=== PATIENT | female | born 1985 | race Caucasian/White ===

== ENCOUNTER 2016-11-08 14:06 | Emergency (ER) | payer MEDICAID, OTHER ==
[~2016-11-08] VITALS: Ht 157.5 cm; Wt 104.8 kg
[~2016-11-08 14:06] MED LIST: /DULO30CA OR; /ESOM40CA OR; /ONDA4TA OR; ABIL10TA OR; ABIL2TAB OR; ATARAX OR; CETI10TA OR; INDE80CA PO; MAG400TA PO; MAGN500T2 OR; MULTIVIT OR; MULTIVIT PO; PREV15CA OR; PROP120C OR; TOPI200T OR; TRAZ100T OR; TRAZ50TA OR; TYLENOL #3 OR; VIT D 2000; VIT D 2000 PO; VIT250TA PO; VITA500T OR
[2016-11-08] MEDS ORDERED: GABA-279 PO (14:33)
[2016-11-08] MEDS ORDERED: TIZA2CAP3 PO (14:33)
[2016-11-08] MEDS ORDERED: CETI10CH PO (14:33)
[2016-11-08] MEDS ORDERED: PROP120C PO (14:33)
[2016-11-08] MEDS ORDERED: NORC5TAB PO (14:33)
[2016-11-08] MEDS ORDERED: SING5CHW23 PO (14:33)
[2016-11-08] MEDS ORDERED: DULE100A IN (14:33)
[2016-11-08] MEDS ORDERED: FAMO40TA3 PO (14:33)
[2016-11-08 16:25] LABS: MEAN CORPUSCULAR HEMOGLOBIN 26.9 pg (27.0-33.0); MEAN CORPUSCULAR HGB CONC 33.1 g/dl (32.0-36.5); MEAN CORPUSCULAR VOLUME 81.3 fl (80.0-96.0); RED CELL DISTRIBUTION WIDTH 14.5 % (11.5-14.5); WHITE BLOOD COUNT 7.5 K/mm3 (4.0-10.0)
[2016-11-08 16:43] LABS: CONTROL LINE INT CTR LINE PRESENT; METHADONE URINE NEGATIVE (NEGATIVE); TRICYCLIC ANTIDEPRESS URINE NEGATIVE (NEGATIVE)
[2016-11-08 16:46] LABS: CONTROL LINE HCG INT CTR LINE PRESENT
[2016-11-08 16:53] LABS: ALBUMIN 4.5 GM/DL (3.2-5.2); ALBUMIN/GLOBULIN RATIO 1.22 (1.00-1.93); ALKALINE PHOSPHATASE 107 U/L (45-117); ALT/SGPT 42 U/L (12-78); ANION GAP 8 MEQ/L (8-16); AST/SGOT 22 U/L (15-37); BILIRUBIN,DIRECT < 0.1 MG/DL (0.0-0.2); BILIRUBIN,TOTAL 0.3 MG/DL (0.2-1.0); BLOOD UREA NITROGEN 8 MG/DL (7-18); CALCIUM LEVEL 9.8 MG/DL (8.5-10.1); CARBON DIOXIDE LEVEL 28 MEQ/L (21-32); CHLORIDE LEVEL 104 MEQ/L (98-107); GLOMERULAR FILTRATION RATE > 60.0 (>60); GLUCOSE, FASTING 125 MG/DL (70-105); MAGNESIUM LEVEL 1.7 MG/DL (1.8-2.4); POTASSIUM SERUM 3.9 MEQ/L (3.5-5.1); SODIUM LEVEL 140 MEQ/L (136-145); TOTAL PROTEIN 8.2 GM/DL (6.4-8.2)
[2016-11-08] MEDS ORDERED: XANA0.25 PO (18:11)
[2016-11-08 18:15] VITALS: BP 143/73
--- NOTE | 2016-11-09 10:39 | ECGEPIP ---
Stationary ECG Study 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
== END 2016-11-08 18:28 | disposition home or self-care (01) ==
LOC: M ED 15:26
DX: F41.9 Anxiety disorder, unspecified (principal); Z88.2 Allergy status to sulfonamides; Z79.899 Other long term (current) drug therapy

== ENCOUNTER 2017-07-26 11:30 | Emergency (ER) | payer MEDICAID, OTHER ==
[~2017-07-26] VITALS: Ht 157.5 cm; Wt 68.2 kg
[~2017-07-26 11:30] MED LIST changes: +CETI10CH PO; +DULE100A IN; +FAMO40TA3 PO; +GABA-279 PO; +NORC1TAB4 PO; +PROP120C PO; +SING5CHW23 PO; +TIZA2CAP3 PO; +XANA0.25 PO
[2017-07-26 11:31] VITALS: BP 127/79
[2017-07-26] MEDS ORDERED: ANUS2.5C2 PR (13:08)
[2017-07-26] MEDS ORDERED: ANUC25SU PR (13:08)
== END 2017-07-26 13:25 | disposition home or self-care (01) ==
LOC: M ED 11:30
DX: K64.5 Perianal venous thrombosis (principal); J45.909 Unspecified asthma, uncomplicated; K21.9 Gastro-esophageal reflux disease without esophagitis; M54.9 Dorsalgia, unspecified; F41.9 Anxiety disorder, unspecified; F33.9 Major depressive disorder, recurrent, unspecified; M31.4 Aortic arch syndrome [Takayasu]; N93.9 Abnormal uterine and vaginal bleeding, unspecified; Z87.440 Personal history of urinary (tract) infections; Z91.5 Personal history of self-harm; Z98.84 Bariatric surgery status; Z79.899 Other long term (current) drug therapy; Z88.2 Allergy status to sulfonamides; F17.210 Nicotine dependence, cigarettes, uncomplicated

== ENCOUNTER 2017-09-13 18:14 | Emergency (ER) | payer OTHER, MEDICAID | END 2017-09-13 21:22 | disposition home or self-care (01) | LOC: M ED 18:14 | DX: S09.90XA Unspecified injury of head, initial encounter (principal); V49.40XA Driver injured in collision with unspecified motor vehicles in traffic accident, initial encounter; Y92.410 Unspecified street and highway as the place of occurrence of the external cause; Y93.89 Activity, other specified; Y99.8 Other external cause status; J45.909 Unspecified asthma, uncomplicated; Z79.51 Long term (current) use of inhaled steroids; Z88.2 Allergy status to sulfonamides; Z88.8 Allergy status to other drugs, medicaments and biological substances; F17.210 Nicotine dependence, cigarettes, uncomplicated | CPT/HCPCS: 99283 ==

== ENCOUNTER → 2017-09-18 | Outpatient (REF) | payer OTHER ==
[2017-09-18 22:08] LABS: APPEARANCE, URINE HAZY (CLEAR); BACTERIA, URINE AUTO 2+ (NEGATIVE); BILIRUBIN, URINE AUTO NEGATIVE (NEGATIVE); BLOOD, URINE BLOOD 1+ (NEGATIVE); COLOR, URINE YELLOW (YELLOW); GLUCOSE, URINE (UA) AUTO NEGATIVE (NEGATIVE); KETONE, URINE AUTO NEGATIVE (NEGATIVE); LEUKOCYTE ESTERASE, URINE AUTO 3+ (NEGATIVE); NITRITE, URINE AUTO NEGATIVE (NEGATIVE); PROTEIN, URINE AUTO NEGATIVE (NEGATIVE); RBC, URINE AUTO 1 /HPF (0-3); SPECIFIC GRAVITY URINE AUTO 1.008 (1.002-1.035); SQUAMOUS EPITHELIAL CELL UR AU 1 /HPF (0-6); UROBILINOGEN, URINE AUTO 0.2 mg/dL (0.0-2.0); WBC, URINE AUTO TNTC /HPF (0-3)
== END ==
LOC: M LAB REF 08:49
DX: N39.0 Urinary tract infection, site not specified (principal)
CPT/HCPCS: 81001

== ENCOUNTER → 2018-01-24 | Outpatient (REF) | payer OTHER, MEDICAID ==
[2018-01-24 13:33] LABS: APPEARANCE, URINE HAZY (CLEAR); BACTERIA, URINE AUTO 1+ (NEGATIVE); BILIRUBIN, URINE AUTO NEGATIVE (NEGATIVE); BLOOD, URINE BLOOD NEGATIVE (NEGATIVE); COLOR, URINE STRAW (YELLOW); GLUCOSE, URINE (UA) AUTO NEGATIVE (NEGATIVE); KETONE, URINE AUTO NEGATIVE (NEGATIVE); LEUKOCYTE ESTERASE, URINE AUTO 3+ (NEGATIVE); MUCUS, URINE SMALL (NEGATIVE); NITRITE, URINE AUTO NEGATIVE (NEGATIVE); PROTEIN, URINE AUTO NEGATIVE (NEGATIVE); RBC, URINE AUTO 1 /HPF (0-3); SPECIFIC GRAVITY URINE AUTO 1.002 (1.002-1.035); SQUAMOUS EPITHELIAL CELL UR AU 2 /HPF (0-6); UROBILINOGEN, URINE AUTO 0.2 mg/dL (0.0-2.0); WBC, URINE AUTO 27 /HPF (0-3)
== END ==
LOC: M LAB REF 13:16
DX: N39.0 Urinary tract infection, site not specified (principal)
CPT/HCPCS: 81001

== ENCOUNTER → 2018-05-10 | Outpatient (CLI) | payer OTHER | LOC: M PAIN 14:00 | DX: M79.1 Myalgia (principal); M51.26 Other intervertebral disc displacement, lumbar region; G43.909 Migraine, unspecified, not intractable, without status migrainosus; F32.9 Major depressive disorder, single episode, unspecified; G47.00 Insomnia, unspecified; F17.210 Nicotine dependence, cigarettes, uncomplicated; Z79.51 Long term (current) use of inhaled steroids; Z79.899 Other long term (current) drug therapy; Z88.2 Allergy status to sulfonamides; Z88.8 Allergy status to other drugs, medicaments and biological substances; Z98.84 Bariatric surgery status | CPT/HCPCS: G0463 ==

== ENCOUNTER 2018-09-18 20:37 | Emergency (ER) | payer OTHER ==
[~2018-09-18] VITALS: Ht 157.5 cm; Wt 68.2 kg
[2018-09-18 20:37] VITALS: BP 130/83
[~2018-09-18 20:37] MED LIST changes: +ANUC25SU PR; +ANUS2.5C2 PR; +BREO1INH INH; +GABA-1171 PO; -GABA-279 PO; +TIZA2CAP PO; -TIZA2CAP3 PO
[2018-09-18] MEDS ORDERED: ALBU83IN INH (20:42)
[2018-09-19] MEDS ORDERED: BREO1INH PO (00:14)
[2018-09-19] MEDS ORDERED: CHERSYP3 PO (00:14)
[2018-09-19] MEDS ORDERED: PRED20TA PO (00:14)
[2018-09-19] MEDS ORDERED: PROAAER10 INH (00:14)
[2018-09-19] MEDS ORDERED: BENZONATATE 100 MG CAP PO ONE (00:15)
[2018-09-19] MEDS ORDERED: ALBUTEROL 90 MCG/ACT 8GM HFA INHALER INH ONE (00:15)
== END 2018-09-19 00:42 | disposition home or self-care (01) ==
LOC: M ED 20:37
DX: Z76.0 Encounter for issue of repeat prescription (principal); J06.9 Acute upper respiratory infection, unspecified; J45.909 Unspecified asthma, uncomplicated; Z79.51 Long term (current) use of inhaled steroids; F17.210 Nicotine dependence, cigarettes, uncomplicated; Z98.84 Bariatric surgery status; Z88.2 Allergy status to sulfonamides; Z88.8 Allergy status to other drugs, medicaments and biological substances